=== PATIENT | male | born 1975 | race Caucasian/White ===

== ENCOUNTER 2019-12-14 11:54 | Emergency (ER) | payer SELFPAY ==
[2019-12-14 12:12] LABS: ABS Eosinophils 0.1 10^3/ul (0-0.6); ABS Lymphocytes 2.1 10^3/ul (1.0-4.8); ABS Monocytes 0.4 10^3/ul (0-0.8); Eosinophil % 1.4 %; Hematocrit 40 % (42-52); Lymphocyte % 31.3 %; Mean Corpuscular HGB Conc 35 g/dL (31-36); Mean Corpuscular Hemoglobin 29 pg (27-31); Mean Corpuscular Volume 84 fL (80-94); Nucleated Red Blood Cells % 0.1; Platelet Count 277 10^3/uL (150-450); Red Blood Count 4.79 10^6 /uL (4.18-5.48); Red Cell Distribution Width 14 % (10-15); White Blood Count 6.6 10^3/uL (3.5-10.8)
[2019-12-14 12:28] LABS: INR 1.03 (0.82-1.09)
--- NOTE | 2019-12-14 12:28 | ED ---
HPI Chest Pain - HPI Summary HPI Summary: The patient is a 44 year-old male presenting to [facility] accompanied by family with a chief complaint of left anterior chest pressure onset at 0000 this morning. He reports that he was at rest last night when the pain began and was dull. Throughout the night and into this morning, the pain has worsened into a pressure sensation and radiates into the left arm and the upper back. He endorses mild shortness of breath, nausea, and paresthesia of the left hand. He denies any vomiting, abdominal pain, fevers, chills, cough, rhinorrhea, headache , or calf pain or swelling. Symptoms are currently rated 6/10 in severity. He has not taken any medication for treatment. No history of cardiac disease, diabetes, or blood clots, although he does not see a PCP. No recent illnesses. He recently moved to [place] from [facility] four months ago. Family history of fatal [place] on paternal side. Former smoker, no EtOH, no substance use. Medications reviewed. Allergies noted. - History of Current Complaint Chief Complaint: EDChestPainROMI Time Seen by Provider: 12/14/19 12:19 Hx Obtained From: Patient Onset/Duration: Started Hours Ago, Still Present Time of Onset: 00:00 Timing: Constant Initial Severity: Mild Current Severity: Moderate Pain Intensity: 6 Pain Scale Used: 0-10 Numeric Chest Pain Location: Left Anterior Chest Pain Radiates: Yes Chest Pain Radiates To:: Back, Arm - left Character: Pressure/Squeezing Aggravating Factor(s): Nothing Alleviating Factor(s): Nothing Associated Signs and Symptoms: Positive: Chest Pain, Shortness of Breath, Nausea. Negative: Headaches, Fever, Chills, Cough, Vomiting, Edema, Other: - calf pain, rhinorrhea - Allergy/Home Medications Allergies/Adverse Reactions: Allergies Allergy/AdvReac Type Severity Reaction Status Date / Time No Known Allergies Allergy Verified 12/14/19 12:46 Home Medications: Home Medications NK [No Home Medications Reported] 12/14/19 [History Confirmed 12/14/19] PMH/Surg Hx/FS Hx/Imm Hx Endocrine/Hematology History: Denies: Hx Diabetes Cardiovascular History: Denies: Hx Hypertension - Surgical History Surgical History: None Surgery Procedure, Year, and Place: none Infectious Disease History: No Infectious Disease History: Denies: Traveled Outside the [place] in Last 30 Days - Family History Known Family History: Positive: Cardiac Disease - [place] father fatal - Social History Alcohol Use: None Hx Substance Use: No Substance Use Type: Reports: None Hx Tobacco Use: Yes Smoking Status (MU): Former Smoker Review of Systems Negative: Fever, Chills Negative: Nasal Discharge Positive: Chest Pain - left anterior radiating into left arm and back Positive: Shortness Of Breath. Negative: Cough Positive: Nausea. Negative: Abdominal Pain, Vomiting Negative: Myalgia - calves, Edema Positive: Paresthesia - left hand. Negative: Headache All Other Systems Reviewed And Are Negative: Yes Physical Exam - Summary Physical Exam Summary: Constitutional: Well-developed, Well-nourished, Alert. (-) Distressed Skin: Warm, Dry HENT: Normocephalic; Atraumatic Eyes: Conjunctiva normal Neck: Musculoskeletal ROM normal neck. (-) JVD, (-) Stridor, (-) Tracheal deviation Cardio: Rhythm regular, rate normal, Heart sounds normal; Intact distal pulses; The pedal pulses are 2+ and symmetric. Radial pulses are 2+ and symmetric. (-) Murmur Pulmonary/Chest wall: Effort normal. (-) Respiratory distress, (-) Wheezes, (-) Rales Abd: Soft, (-) tenderness, (-) Distension, (-) Guarding, (-) Rebound Musculoskeletal: (-) Edema Lymph: (-) Cervical adenopathy Neuro: Alert, Oriented x3 Psych: Mood and affect Normal Triage Information Reviewed: Yes Vital Signs On Initial Exam: Initial Vitals Temp Pulse Resp BP Pulse Ox 98.0 F 63 18 139/74 99 12/14/19 11:59 12/14/19 11:59 12/14/19 11:59 12/14/19 11:59 12/14/19 11:59 Vital Signs Reviewed: Yes Procedures - Sedation Patient Received Moderate/Deep Sedation with Procedure: No Diagnostics - Vital Signs Vital Signs Temp Pulse Resp BP Pulse Ox 12/14/19 11:59 98.0 F 63 18 139/74 99 - Laboratory Lab Results: Lab Results 12/14/19 Range/Units 12:04 WBC 6.6 (3.5-10.8) 10^3/uL RBC 4.79 (4.18-5.48) 10^6 /uL Hgb 14.0 (14.0-18.0) g/dL Hct 40 L (42-52) % MCV 84 (80-94) fL MCH 29 (27-31) pg MCHC 35 (31-36) g/dL RDW 14 (10-15) % Plt Count 277 (150-450) 10^3/uL MPV 7.0 L (7.4-10.4) fL Neut % (Auto) 60.4 % Lymph % (Auto) 31.3 % [place] % (Auto) 6.6 % Eos % (Auto) 1.4 % Baso % (Auto) 0.3 % Absolute Neuts (auto) 4.0 (1.5-7.7) 10^3/ul Absolute Lymphs (auto) 2.1 (1.0-4.8) 10^3/ul Absolute Monos (auto) 0.4 (0-0.8) 10^3/ul Absolute Eos (auto) 0.1 (0-0.6) 10^3/ul Absolute Basos (auto) 0.0 (0-0.2) 10^3/ul Absolute Nucleated RBC 0.0 10^3/ul Nucleated RBC % 0.1 Result Diagrams: 12/14/19 12:04 12/14/19 12:04 Lab Statement: Any lab studies that have been ordered have been reviewed, and results considered in the medical decision making process. - Radiology CXR Radiology Interpretation Completed By: Radiologist Summary of Radiographic Findings: Impression: No evidence for active cardiopulmonary disease. ED physician has reviewed this report. - EKG 1152 Cardiac Rate: NL - 75 BPM EKG Rhythm: Sinus Rhythm Summary of EKG Findings: EKG at 1152 reveals normal sinus rhythm at 75 BPM, no ischemic changes. Dr. Santana has reviewed and interpreted this EKG. Re-Evaluation - Re-Evaluation First Eval Re-Evaluation Time: 16:20 Comment: We discussed results and plan for discharge. Chest Pain Course/Dx - Course Course Of Treatment: Patient is a 44 year-old male presenting with worsening left anterior chest pressure radiating into the left arm and upper back onset this morning at 00:00 accompanied by shortness of breath, nausea, and paresthesia of the left hand. Family history significant for fatal [place] in father. Physical exam without significant abnormality. Patient administered Aspirin. Blood work obtained, revealing alkaline phosphatase of 115 but is otherwise normal. First troponin of 0.01. An EKG at 1152 reveals normal sinus rhythm at 75 BPM, no ischemic changes. CXR is negative. Second troponin negative. Patient is safe for discharge. Patient agreeable with plan. Reviewed ED workup patient, informed no evidence of ACS. Patient comfortable with discharge home. Given PCP referral and encouraged to establish care within next several days. - Diagnoses Provider Diagnoses: Chest pain Discharge ED - Sign-Out/Discharge Documenting (check all that apply): Patient Departure - Patient will be discharged home. - Discharge Plan Condition: Stable Disposition: HOME Patient Education Materials: Chest Pain (DC) Referrals: Care [facility] [Outside] - 3 Days Additional Instructions: Follow up with your primary care provider in 2-3 days. Return to the emergency department for any new or worsening symptoms. - Billing Disposition and Condition Condition: STABLE Disposition: Home - Attestation Statements Document Initiated by Courtney: Yes Documenting Scribe: Chikis Young Provider For Whom Courtney is Documenting (Include Credential): Dr. Naveed Santana DO Scribe Attestation: Chikis Perdomo scribed for Dr. Naveed Santana DO on 12/14/19 at 1702. Scribe Documentation Reviewed: Yes Provider Attestation: The documentation as recorded by the Chikis cody accurately reflects the service I personally performed and the decisions made by me, Dr. Naveed Santana DO Status of Scribzach Document: Viewed
[2019-12-14 12:32] LABS: Albumin 4.1 g/dL (3.2-5.2); Albumin/Globulin Ratio 1.2 (1-3); BUN/Creatinine Ratio 11.3 (8-20); Calcium 8.9 mg/dL (8.6-10.3); EGFR African American 82.8 (>60); EGFR Non-African American 68.5 (>60); Globulin 3.3 g/dL (2-4); Potassium 3.7 mmol/L (3.5-5.0); Total Bilirubin 0.5 mg/dL (0.2-1.0); Total Protein 7.4 g/dL (6.4-8.9)
[2019-12-14 12:33] LABS: Troponin I 0.01 ng/mL (<0.03)
[2019-12-14] MEDS ORDERED: Aspirin 81 mg CHEW TAB* 81 MG TAB.CHEW PO ONE (12:36)
[2019-12-14 16:52] VITALS: BP 118/80
== END 2019-12-14 16:52 | disposition home or self-care (01) ==
LOC: ED 11:54
DX: R07.89 Other chest pain (principal); R06.02 Shortness of breath; R11.0 Nausea; R20.2 Paresthesia of skin; Z82.49 Family history of ischemic heart disease and other diseases of the circulatory system; Z87.891 Personal history of nicotine dependence
CPT/HCPCS: 36415; 71045; 80053; 84484; 85025; 85610; 93005; 99283; A9270-GY